=== PATIENT | female | born 1995 | race Caucasian/White ===

== ENCOUNTER 2018-06-18 22:22 | Emergency (ER) | payer MEDICAID, OTHER ==
[~2018-06-18] VITALS: Ht 167.6 cm; Wt 63.1 kg
[2018-06-18 22:28] VITALS: Ht 167.6 cm; Wt 63.1 kg
[2018-06-19] MEDS ORDERED: FAMOTIDINE 20 MG INJ IV STA (00:04)
[2018-06-19] MEDS ORDERED: ONDANSETRON 4 MG INJ IV STA (00:04)
[2018-06-19] MEDS ORDERED: SOD CHLORIDE 0.9% 1,000 ML IV STA (00:04)
[2018-06-19] MEDS ORDERED: ACETAMINOPHEN 325 MG TAB PO ONE (00:30)
[2018-06-19] MEDS ORDERED: AL HYDROX/MG HYDROX/SIMETH 30 ML CUP PO ONE (02:30)
[2018-06-19] MEDS ORDERED: MAG-19 PO (03:10)
[2018-06-19] MEDS ORDERED: ONDA4TAB14 PO (03:10)
--- NOTE | 2018-06-19 03:17 | ERD ---
ER Documentation Chief Complaint Chief Complaint cough x 2 months; ST; vomit dark blood today; pt not in distress HPI 22-year-old female patient with a past medical history of bipolar disorder presents to the ED stating that she has some epigastric pain that started earlier today. Reports that she had a few episodes of nausea and bilious slightly streaked vomit with blood. Reports that she feels weak. Reports that last night, she drink 4 shots of tequila. 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 Reports that she drinks every other day. Reports that her last menstruation, was 2 weeks ago. Denies any chest pain, shortness of breath, diarrhea, constipation, fever, chills, dysuria, urgency, frequency. ROS All systems reviewed and are negative except as per history of present illness. Medications Home Meds Active Scripts Ondansetron (Ondansetron Odt) 4 Mg Tab.rapdis, 4 MG PO Q6H PRN for NAUSEA AND/OR VOMITING, #10 TAB Prov:RIO KIM PA-C 06/19/18 Magaldrate/Simethicone* (Mylanta*) 355 Ml Susp, 20 ML PO BID PRN for GASTROINTESTINAL UPSET, #1 BOTTLE Prov:RIO KIM PA-C 06/19/18 Allergies Allergies: Coded Allergies: No Known Allergy (Unverified , 06/18/18) PMhx/Soc Hx Alcohol Use: No Hx Substance Use: No Hx Tobacco Use: No Smoking Status: Never smoker FmHx Family History: No diabetes, No coronary disease Physical Exam Vitals Vital Signs Date Temp Pulse Resp B/P (MAP) Pulse Ox O2 O2 Flow FiO2 Time Delivery Rate 06/18/18 97.6 80 20 135/89 100 22:28 (104) Physical Exam Const: [id number], well-nourished. In no acute distress. Head: Atraumatic, normocephalic Eyes: Normal Conjunctiva without injection. No purulent discharge. ENT: Normal external ear, nose. Moist oropharynx without tonsillar exudates. Non-erythematous pharynx. Uvula midline. No drooling. No trismus. Neck: No cervical midline tenderness. Full range of motion. No meningismus. No cervical lymphadenopathy. No JVD. Resp: Clear to auscultation bilaterally. No wheezing, rhonchi, rales, or crackles. No accessory muscle use. No retractions. Cardio: Regular rate and rhythm. No murmurs, rubs or gallops. Abd: Soft, slight epigastric tenderness, non distended. Normal bowel sounds. No palpable masses. No rebound tenderness. No guarding. Negative McBurney's point. Negative psoas sign. Negative obturator sign. Skin: No petechiae or rashes Back: No midline tenderness. No CVA tenderness. Ext: No cyanosis, or edema. Neur: Awake and alert. Normal gait. Normal coordination. Psych: Normal Mood and Affect Result Diagram: 06/19/18 0050 06/19/180 Results 24 hrs Laboratory Tests Test 06/19/18 00:30 06/19/18 00:44 06/19/18 00:50 Urine Color YELLOW Urine Clarity CLEAR Urine pH 6.0 Urine Specific [place] 1.031 Urine Ketones 1+ mg/dL Urine Nitrite NEGATIVE mg/dL Urine Bilirubin NEGATIVE mg/dL Urine Urobilinogen 1+ mg/dL Urine Leukocyte Esterase TRACE Mery/ul Urine Microscopic RBC 2 /HPF Urine Microscopic WBC 5 /HPF Urine Squamous Epithelial Cells FEW /HPF Urine Bacteria FEW /HPF Urine Mucus MODERATE /HPF Urine Hemoglobin NEGATIVE mg/dL Urine Glucose NEGATIVE mg/dL Urine Total Protein NEGATIVE mg/dl POC Beta HCG, Qualitative NEGATIVE White Blood Count 9.1 10^3/ul Red Blood Count 4.46 10^6/ul Hemoglobin 13.7 g/dl Hematocrit 40.4 % Mean Corpuscular Volume 90.6 fl Mean Corpuscular Hemoglobin 30.7 pg Mean Corpuscular 33.9 g/dl Hemoglobin Concent Red Cell Distribution Width 11.1 % Platelet Count 277 10^3/UL Mean Platelet Volume 8.9 fl Immature Granulocytes % 0.200 % Neutrophils % 70.4 % Lymphocytes % 19.8 % Monocytes % 8.0 % Eosinophils % 0.9 % Basophils % 0.7 % Nucleated Red Blood Cells % 0.0 /100WBC Immature Granulocytes # 0.020 10^3/ul Neutrophils # 6.4 10^3/ul Lymphocytes # 1.8 10^3/ul Monocytes # 0.7 10^3/ul Eosinophils # 0.1 10^3/ul Basophils # 0.1 10^3/ul Nucleated Red Blood Cells # 0.0 10^3/ul Sodium Level 139 mmol/L Potassium Level 4.0 mmol/L Chloride Level 98 mmol/L Carbon Dioxide Level 28 mmol/L Anion Gap 13 Blood Urea Nitrogen 14 mg/dl Creatinine 0.64 mg/dl Est Glomerular Filtrat > 60 mL/min Rate mL/min Glucose Level 98 mg/dl Calcium Level 10.0 mg/dl Total Bilirubin 0.6 mg/dl Direct Bilirubin 0.00 mg/dl Indirect Bilirubin 0.6 mg/dl Aspartate Amino 33 IU/L Transf (AST/SGOT) Alanine 37 IU/L Aminotransferase (ALT/SGPT) Alkaline Phosphatase 54 IU/L Total Protein 6.8 g/dl Albumin 4.5 g/dl Globulin 2.30 g/dl Albumin/Globulin Ratio 1.95 Lipase 40 U/L Current Medications Medications Dose Sig/Fernandez Start Time Status Last (Trade) Ordered Route PRN Stop Time Admin Dose Reason Admin Sodium 1,000 ml @ Q1H STAT 06/19/18 DC 06/19/18 Chloride 1,000 mls/hr IV 00:04 01:09 06/19/18 01:03 Ondansetron 4 mg ONCE STAT 06/19/18 DC 06/19/18 HCl (Zofran IV 00:04 01:09 Inj) 06/19/18 00:05 Famotidine 20 mg ONCE STAT 06/19/18 DC 06/19/18 (Pepcid Iv) IV 00:04 01:09 06/19/18 00:05 650 mg ONCE ONCE 06/19/18 DC 06/19/18 Acetaminophen PO 00:30 01:09 (Tylenol 06/19/18 Tab) 00:31 Al 30 ml ONCE ONCE 06/19/18 DC 06/19/18 Hydrox/Mg PO 02:30 02:39 Hydrox/Simeth 06/19/18 icone 02:31 (Mag-Al Plus) Procedures/MDM 22-year-old female patient with a past medical history of bipolar disorder presents the ED complaining of epigastric pain, vomiting. Patient is afebrile and nontoxic-appearing. Patient was further worked up with CBC, CMP, lipase, UA, urine . Patient's pain and symptoms have improved after treatment with 1 L of normal saline, 4 mg IV Zofran, 20 mg IV famotidine, Tylenol, Mylanta. CBC: No leukocytosis. No e/o of systemic infection. No e/o anemia. CMP: No e/o severe acidosis, alkalosis, renal failure, diabetic ketoacidosis, liver disease Lipase within normal limits. Urine: trace leukocyte esterase, no nitrites, no hematuria. Pending urine culture. Urine : Negative Differentials include gastritis versus GERD. Low suspicion for ectopic , ovarian torsion, cholecystitis, choledocholithiasis, cholangitis, pancreatitis, appendicitis, bowel obstruction, ileus, volvulus, nephrolithiasis, pyelonephritis, hepatitis, perforated viscus, diverticulitis, strangulated/incarcerated hernia, DKA, acute abdomen, mesenteric ischemia or other emergent conditions. Discharge medications: Nadia Lackey Follow up with primary care physician in 1-2 days for referral to barometers calibrator. Instructed patient to return to the ED sooner for any worsening symptoms. Patient's questions were answered. Patient understood and agreed with discharge plan. Patient discharged stable. Departure Diagnosis: Primary Impression: Vomiting Vomiting type: unspecified Vomiting Intractability: unspecified Nausea presence: unspecified Qualified Codes: R11.10 - Vomiting, unspecified Additional Impression: Epigastric pain Condition: Stable Patient Instructions: Gerd (Adult), Gastritis Vs. Ulcer Referrals: [facility] YOU HAVE RECEIVED A MEDICAL SCREENING EXAM AND THE RESULTS INDICATE THAT YOU DO NOT HAVE A CONDITION THAT REQUIRES URGENT TREATMENT IN THE EMERGENCY DEPARTMENT. FURTHER EVALUATION AND TREATMENT OF YOUR CONDITION CAN WAIT UNTIL YOU ARE SEEN IN YOUR DOCTORS OFFICE WITHIN THE NEXT 1-2 DAYS. IT IS YOUR RESPONSIBILITY TO MAKE AN APPOINTMENT FOR FOLOW-UP CARE. IF YOU HAVE A PRIMARY DOCTOR --you should call your primary doctor and schedule an appointment IF YOU DO NOT HAVE A PRIMARY DOCTOR YOU CAN CALL OUR PHYSICIAN REFERRAL HOTLINE AT IF YOU CAN NOT AFFORD TO SEE A PHYSICIAN YOU CAN CHOSE FROM THE FOLLOWING [facility] [id number] [facility] [address] [facility] [address] [facility] [address] [place] [address] [facility] [address] [facility]. [facility] YOU HAVE RECEIVED A MEDICAL SCREENING EXAM AND THE RESULTS INDICATE THAT YOU DO NOT HAVE A CONDITION THAT REQUIRES URGENT TREATMENT IN THE EMERGENCY DEPARTMENT. FURTHER EVALUATION AND TREATMENT OF YOUR CONDITION CAN WAIT UNTIL YOU ARE SEEN IN YOUR DOCTORS OFFICE WITHIN THE NEXT 1-2 DAYS. IT IS YOUR RESPONSIBILITY TO MAKE AN APPOINTMENT FOR FOLOW-UP CARE. IF YOU HAVE A PRIMARY DOCTOR --you should call your primary doctor and schedule and appointment IF YOU DO NOT HAVE A PRIMARY DOCTOR YOU CAN CALL OUR PHYSICIAN REFERRAL HOTLINE AT . IF YOU CAN NOT AFFORD TO SEE A PHYSICIAN YOU CAN CHOSE FROM THE FOLLOWING [facility] [place]IONS[facility] [place] [address] [place] [address] [facility] [address] [place] [address] [facility] [address] [place] [address] [facility] URGENT CARE/SPECIALTIES Additional Instructions: Call your primary care doctor TOMORROW for an appointment during the next 2-3 days.See the doctor sooner or return here if your condition worsens before your appointment time. RIO KIM PA-C Jun 19, 2018 03:17
[2018-06-19 03:19] VITALS: BP 107/68; PULSE 68; RESP 18
== END 2018-06-19 03:25 | disposition home or self-care (01) ==
LOC: FTE 22:22
DX: R11.10 Vomiting, unspecified (principal); R10.13 Epigastric pain
CPT/HCPCS: 36415; 80053; 81001; 81025; 83690; 85025; 87086; 96361; 96374; 96375; J2405; J7030; Z7502; Z7610